=== PATIENT | female | born 1965 | race African-American/Black ===

== ENCOUNTER 2019-02-21 10:49 | Day surgery (SDC) | payer OTHER ==
[~2019-02-21] VITALS: Ht 165.1 cm; Wt 83.9 kg
[2019-02-21 11:27] VITALS: Ht 165.1 cm; Wt 83.9 kg
[2019-02-21] MEDS ORDERED: HTN MED (11:36)
[2019-02-21 11:47] VITALS: BP 155/91; PULSE 64; RESP 16
[2019-02-21] MEDS ORDERED: FENTAnyl 50 MCG/ML VIAL ONE (12:54)
[2019-02-21] MEDS ORDERED: MIDAZOLAM 1 MG/ML 2 ML INJ ONE ×2 (12:54)
== END 2019-02-21 14:57 | disposition home or self-care (01) ==
LOC: GIL 10:49
PROVIDERS: ATTEND Internal Medicine
DX: Z12.11 Encounter for screening for malignant neoplasm of colon (principal)
CPT/HCPCS: 45378; 88305; J2250; J3010; Z7610